=== PATIENT | female | born 1950 | race Caucasian/White ===

== ENCOUNTER → 2016-09-06 | Outpatient (CLI) | payer MEDICARE ==
[~2016-09-06] MED LIST: MECLIZINE 25MG25 MG PO; NAPROXEN SODIU500 MG PO; ZOFRAN ODT4 MG PO
[2016-09-06 10:26] LABS: HEMOGLOBIN 13.5 g/dL (12.2-16.2); LYMPH # 1.6 K/mm3 (0.7-4.5); LYMPH % 35.1 % (10-50.0)
[2016-09-06 12:14] LABS: BUN 20 mg/dL (7-18)
[2016-09-06 12:19] LABS: GFR (ESTIMATED) 72 ML/MIN (59-)
[2016-09-06 12:31] LABS: BILIRUBIN, INDIRECT 0.3 mg/dL (0-0.9)
== END ==
LOC: LAB 09:41
PROVIDERS: Internal Medicine; Orthopaedic Surgery
DX: I25.10 Atherosclerotic heart disease of native coronary artery without angina pectoris (principal); I10 Essential (primary) hypertension; E78.5 Hyperlipidemia, unspecified; Z01.818 Encounter for other preprocedural examination